=== PATIENT | female | born 1990 | race Hispanic/Latino ===

== ENCOUNTER 2020-07-05 09:18 | Inpatient (IN) | payer OTHER ==
[2020-07-06] MEDS ORDERED: OXYTOCIN/LR 20 UNIT/1,000 ML BAG IV SCH ×2 (04:15→10:00)
[2020-07-06] MEDS ORDERED: METHYLERGONOVINE 0.2MG/ML AMP IM PRN (04:15)
[2020-07-06] MEDS ORDERED: PROMETHAZINE INJ 25 MG/ML AMP IM PRN (04:15)
[2020-07-06] MEDS ORDERED: BUTORPHANOL 1 MG/ML INJ IV PRN (04:15)
[2020-07-06] MEDS ORDERED: Ringers Lactate 1,000 ML IV SCH (04:15)
[2020-07-06] MEDS ORDERED: CARBOPROST TROME 250 MCG/ML IM PRN (04:15)
[2020-07-06] MEDS ORDERED: Ringers Lactate 1,000 ML IV PRN (04:15)
[2020-07-06] MEDS ORDERED: OXYTOCIN/LR 20 UNIT/1,000 ML BAG IV ONE (04:57)
[2020-07-06] MEDS ORDERED: Ringers Lactate 1,000 ML IV ONE (05:32)
[2020-07-06 06:12] VITALS: BMI 24.1
[2020-07-06 06:13] LABS: Urine Appearance CLOUDY; Urine Bilirubin NEGATIVE (NEG); Urine Blood NEGATIVE (NEG); Urine Color YELLOW; Urine Culture Reflex Order REFLEXED; Urine Glucose NEGATIVE (NEG); Urine Microscopic Reflex ORDER UMIC; Urine Protein NEGATIVE (NEG); Urine Specific Gravity 1.015 (1.005-1.030)
[2020-07-06 06:14] LABS: Calcium Oxalate Crystals- Ur FEW (NONE SEEN); Urine Amorphous Sediment 3+ /HPF (NONE SEEN); Urine Bacteria <20 /HPF (<20); Urine RBC NONE SEEN /HPF (NONE SEEN)
[2020-07-06 06:33] LABS: Absolute Lymphocytes (CBC) 1.6 K/uL (0.7-4.9); Basophils % 0.4 % (0-1.3); Hematocrit 31.1 % (36.0-45.0); Lymphocytes % 20.4 % (15.3-44.8); MPV 8.8 fL (7.6-11.3); RBC Red Blood Cell Count 3.57 M/uL (3.86-4.86)
--- NOTE | 2020-07-06 08:21 | PREOPHP ---
Date of Admission: 07/06/2020 History Of Present Illness: A 30-year-old 2, para 1, 39 weeks and 2-3 days, followed antepar brea without complications, other than noted to be positive for COVID, actually no symptoms. has never been tested, neither one of them have symptoms. The patient is 3 cm to 3.5 cm, still very posterior, baby well applied, rupture of membranes, clear fluid. FHTs normal and reactive. Full lab or talk given. Anticipate delivery sometime later today. Family History: Father with hypertension. Allergies: THE PATIENT HAS HAD NO ALLERGIES. Medications: No medicines prior to admission other than vitamins and iron. Social History: Does not smoke. Physical Examination: HEENT: Clear. Pupils equal, round, and reactive to light and accommodation. Conjunctivae well perf used. No oral, lingual, or buccal lesions. Chest and Lungs: Clear. Heart: Without murmurs, thrills, heaves, or rubs. Breasts: Without masses on previous visits. Abdomen: Term size. Pelvic: As stated. Extremities: Clear without edema, cyanosis, or clubbing. Plan: Admit for delivery at 39 weeks and approximately 3 days. COVID positive, asymptomatic. LOLIS/CLIFFORD Voice ID: [id number]
[2020-07-06] MEDS ORDERED: LIDOCAINE 1% 20 ML MDV ONE (09:07)
[2020-07-06] MEDS ORDERED: DIPHENHYDRAMINE 25 MG TAB/CAP PO PRN (09:22)
[2020-07-06] MEDS ORDERED: BISACODYL 10 MG RECTAL SUPP RC PRN (09:22)
[2020-07-06] MEDS ORDERED: Oxycodone HCl/Acetaminophen 1 TAB TAB PO PRN ×2 (09:22)
[2020-07-06] MEDS ORDERED: DOCUSATE NA/SENNA CONC 1 TAB PO PRN (09:22)
[2020-07-06] MEDS ORDERED: ACETAMINOPHEN 500 MG TAB PO PRN (09:22)
[2020-07-06] MEDS: IBUPROFEN 600 MG TAB PO PRN ×2 (09:50→19:40)
[2020-07-06] MEDS ORDERED: IBUPROFEN 600 MG TAB ONE (10:00)
--- NOTE | 2020-07-06 10:02 | OP ---
Surgeon: Iron Winn MD is a 30-year-old 2, para 1, 39 weeks 3 days, came in for induction. Rh positive, immune to rubella, negative strep screen, positive COVID status, 0 symptoms. 3 cm to 3.[address] examined. Rupture of membranes, clear fluid. Received Stadol 1 mg IV, Phenergan 25 mg IM once, w ent rapidly to complete second stage of 15 to 20 minutes. Spontaneous vaginal delivery of an estimat ed 6 pounds plus female, Apgars 9 and 9. Very small first-degree laceration involving the left labia minora, 4 stitches of 2-0 chromic, local infiltration. Tolerated all procedures well. Final Diagnoses: Term intrauterine 39 weeks 3 days, vaginal delivery, positive COVID statu s, asymptomatic. LOLIS/CLIFFORD Voice ID: [id number] Report ID: [id number]
[2020-07-06 23:28] LABS: RPR (Rapid Plasma Reagin) NON-REACT (NON-REACT)
[2020-07-07 11:45] VITALS: BP 111/55; TEMP 97.6
[2020-07-08 22:17] LABS: HBsAG Nonreactive (Nonreactive)
== END 2020-07-07 15:35 | disposition home or self-care (01) | DRG 805 ==
LOC: 2ND-WC 07-06 03:30
PROVIDERS: ADMIT Specialist; ATTEND Specialist
PROC: 10E0XZZ Delivery of Products of Conception, External Approach (ICD-10-PCS; principal; 2020-07-06)
PROC: 0HQ9XZZ Repair Perineum Skin, External Approach (ICD-10-PCS; 2020-07-06)
DX: O98.52 Other viral diseases complicating childbirth (principal); U07.1 COVID-19; Z37.0 Single live birth; Z3A.39 39 weeks gestation of pregnancy; O75.5 Delayed delivery after artificial rupture of membranes; O70.0 First degree perineal laceration during delivery
CPT/HCPCS: 36415; 81003; 81015; 85025; 86592; 86901; 87086; 87088; 87340; J0595; J2210; J2550; J2590; J7120; U0003

== ENCOUNTER 2022-07-06 13:40 | Emergency (ER) | payer OTHER ==
--- OUTSIDE RECORDS SUMMARY | 2022-07-06 13:45 | XMS REPORT | Continuity of Care Document ---
:1990 Author Organization [facility] t Address [address] [place] [address] Care Team Providers Name Role Phone PCP, PATIENT DOES NOT HAVE A Primary Care Physician Unavaila SAIRA Torres Attending Clinician Unavailable Saira Olivarez Attending Clinician Payers Payer Name Policy Type Policy Number Effective Date Expiration Date Madeleine MALHOTRA II [id number] 2021 00:00:00 Problems Condition Condition Condition Status Onset Resolution Last Treating Co mments Source Name Details Category Date Date Treatment Clinician Date No known No known Disease Unive rs active active ity of problems problems [facility] Allergies, Adverse Reactions, Alerts Allergy Allergy Status Severity Reaction(s) Onset Inactive Treating Comm ents Source Name Type Date Date Clinician NO KNOWN Drug Active Univers ALLERGIE Class ity of S [facility] Social History Social Habit Start Date Stop Date Quantity Comments Source Exposure to Not sure [facility] SARS-CoV-2 (event) Medica l Branch Sex Assigned At [birth year] [facility] 00:00:00 00:00:00 [facility] Smoking Status Start Date Stop Date Source Unknown if ever smoked [facility] Medications Ordered Filled Start Stop Current Ordering Indication Dosage Frequency Signature Comments Components Source Medication Medication Date Date Medication? Clinician (SIG) Name Name No known No Univers medications 4-19 ity of 10:26: [address] Vital Signs Vital Name Observation Time Observation Value Comments Source Systolic blood 2022-01-24 15:26:00 114 mm[Hg] Univer sity of pressure [facility] Diastolic blood 2022-01-24 15:26:00 78 mm[Hg] Unive rsity [facility] Heart rate 2022-01-24 15:26:00 100 /min [facility] Body temperature 2022-01-24 15:26:00 37.61 Odalis [facility] Respiratory rate 2022-01-24 15:26:00 17 /min [facility] Body height 2022-01-24 15:26:00 157.5 cm [facility] Body weight 2022-01-24 15:26:00 59.421 kg [facility] BMI 2022-01-24 15:26:00 23.96 kg/m2 [facility] Oxygen saturation in 2022-01-24 15:26:00 98 /min [facility] Arterial blood by [facility] Pulse oximetry [place] Procedures Procedure Date / Time Performed Performing Clinician Carlos e POCT MOLECULAR FLU 2022-01-24 15:41:00 Saira Sandhu [facility] POCT MOLECULAR STREP 2022-01-24 15:39:00 [facility] Encounters Start End Encounter Admission Attending Care Care Encounter Source Date/Time Date/Time Type Type Clinicians Facility Department ID 2022-01-24 2022-01-24 Outpatient R [facility] [id number] Univers 10:20:00 11:00:39 SAIRA helena o f [facility] 2022-01-24 2022-01-24 Urgent [facility] [id number] Univers 10:20:00 11:00:39 Care [facility] [id number] i ty of ODALYS [id number] Adam as TERESA?BLEA [id number] [address] MEDICAL OFFICE BUILDING Results Test Description Test Time Test Comments Results Result Comments Source POCT MOLECULAR FLU 2022-01-24 15:52:45 Test Item Value Reference Range Interpretation Comme nts POCT Molecular FluA (test code = 59158-8) Negative Negative POCT Molecular FluB (test code = 27090-9) Negative Negative Lab Interpretation (test code = 13628-8) [facility] [id number] 15:45:59 Test Item Value Reference Range Interpretation Comments POCT Molecular Strep (test code = Negative Negative 96575-2) Lab Interpretation (test code = Normal 52922-4) [facility]
[2022-07-06] MEDS ORDERED: ASPIRIN 81 MG CHEWABLE TABLET ONE (14:01)
[2022-07-06 14:23] LABS: Absolute Lymphocytes (CBC) 1.7 K/uL (0.7-4.9); Hematocrit 39.8 % (36.0-45.0); MCV 88.6 fL (80-100); RBC Red Blood Cell Count 4.49 M/uL (3.86-4.86)
[2022-07-06 14:39] LABS: ALT/SGPT 23 U/L (12-78); AST/SGOT 13 U/L (15-37); Albumin 4.1 g/dL (3.4-5.0); Alkaline Phosphatase 108 U/L (45-117); BUN Blood Urea Nitrogen 11 mg/dL (7-18); Bicarbonate 24 mmol/L (21-32); Bilirubin Direct 0.1 mg/dL (0-0.2); Bilirubin Total 0.6 mg/dL (0.2-1.0); Glomerular Filtration Rate 89 ml/min (=/>90); Glucose Level 92 mg/dL (74-106); Potassium 3.5 mmol/L (3.5-5.1); Protein, Total 8.3 g/dL (6.4-8.2); Sodium Level 139 mmol/L (136-145)
[2022-07-06 14:53] LABS: Troponin High Sensitivity < 3.0 pg/mL (<58.9)
--- NOTE | 2022-07-06 15:16 | RAD REPORT ---
EXAM DESCRIPTION: RAD - Chest Single View - 07/06/2022 2:35 pm CLINICAL HISTORY: CHEST PAIN COMPARISON: None TECHNIQUE: AP portable chest image was obtained 07/06/2022 2:35 pm . FINDINGS: Lungs are clear. Heart and vasculature are normal. No measurable pleural effusion and no p neumothorax. No acute bony abnormality seen. No acute aortic findings suspected. IMPRESSION: No acute cardiopulmonary process.
--- NOTE | 2022-07-06 15:37 | EDPHYS ---
Physician Documentation [facility] Name: Aimee Brewer Age: 32 yrs Sex: Female : 1990 Arrival Date: 07/06/2022 Time: 13:42 Bed 9 Private MD: ED Physician Nikhil Marcos HPI: 07/06 14:14 This 32 yrs old Female presents to ER via Ambulatory with complaints of Chest jr11 Pain, Back Pain, Jaw Pain. 14:14 The patient or guardian reports chest pain that is located primarily in the substernal jr11 area. The pain does not radiate. Associated signs and symptoms: Pertinent negatives: abdominal pain, diaphoresis, lower extremity pain, lower extremity swelling, no h/o clots, no OCPs. The chest pain is described as aching, sharp. Duration: The patient or guardian reports multiple episodes, x 2 last 2 nights. Modifying factors: The symptoms are alleviated by nothing. the symptoms are aggravated by nothing. Severity of pain: At its worst the pain was moderate in the emergency department the pain. HOURLY SHIFT: 13:50 LMP N/A - Depo-provera kl Historical: - Allergies: 13:50 No Known Allergies; kl - Home Meds: 13:50 None [Active]; kl - PMHx: 13:50 None; kl - Immunization history:: Adult Immunizations up to date. - Social history:: Smoking status: Patient denies any tobacco usage or history of. ROS: 14:14 All other systems are negative. jr11 Exam: 14:14 Constitutional: This is a well developed, well nourished patient who is awake, alert, jr11 and in no acute distress. Head/Face: Normocephalic, atraumatic. Eyes: Extra-ocular motions intact. Lids and lashes normal. Conjunctiva and sclera are non-icteric and not injected. Cornea within normal limits. Periorbital areas with no swelling, redness, or edema. ENT: Nares patent. No nasal discharge, no septal abnormalities noted. Oropharynx with no redness, swelling, or masses, exudates, or evidence of obstruction, uvula midline. Mucous membranes moist. Neck: Trachea midline, no thyromegaly or masses palpated, and no cervical lymphadenopathy. Supple, full range of motion without nuchal rigidity, or vertebral point tenderness. No Meningismus. Chest/axilla: Normal chest wall appearance and motion. Nontender with no deformity. No lesions are appreciated. Cardiovascular: Regular rate and rhythm with a normal S1 and S2. No gallops, murmurs, or rubs. Normal PMI, no JVD. No pulse deficits. Respiratory: Lungs have equal breath sounds bilaterally, clear to auscultation and percussion. No rales, rhonchi or wheezes noted. No increased work of breathing, no retractions or nasal flaring. Abdomen/GI: Soft, non-tender, with normal bowel sounds. No distension or tympany. No guarding or rebound. No evidence of tenderness throughout. Back: No spinal tenderness. No costovertebral tenderness. Full range of motion. Skin: Warm, dry with normal turgor. Normal color with no rashes, no lesions, and no evidence of cellulitis. MS/ Extremity: Pulses equal, no cyanosis. Neurovascular intact. Full, normal range of motion. Neuro: Awake and alert, GCS 15, oriented to person, place, time, and situation. No gross motor or sensory deficits. Vital Signs: 13:49 BP 133 / 96; Pulse 80; Resp 18; Temp 98.4; Pulse Ox 100% ; Weight 56.7 kg; Height 5 ft. kl 2 in. (157.48 cm); Pain 8/10; 14:15 BP 128 / 94; Pulse 72; Resp 16; Pulse Ox 98% ; kb3 13:49 Body Mass Index 22.86 (56.70 kg, 157.48 cm) kl MDM: 13:59 Patient medically screened. [facility] 14:02 Differential diagnosis: anxiety, gastritis. Data reviewed: vital signs, nurses notes. [facility] ED course: EKG interpreted by me shows normal sinus rhythm, normal axis, normal intervals, no acute ST changes, EKG normal otherwise.. 14:14 ED course: Patient is a 35-year-old with episodes of chest pain that happen at [facility] nighttime, worse laying flat, at times described as a burning sharp sensation, better with standing up or sitting up. Extremely low risk for ACS, no high risk factors. Patient is also PERC negative, not on OCPs, no history of blood clots. Patient likely with gastritis versus GERD, will send 1 set of troponin rule out ACS. If negative, will refer back to primary care doctor.. 15:35 HEART Score: History: Slightly Suspicious (0), ECG: Normal (0), Age: < or = 45 years jr11 (0), Risk Factors: 1 or 2 risk factors (1), Troponin: < or = 1 x Normal Limit (0), Total Score = 1. 07/06 13:59 Order name: Basic Metabolic Panel; Complete Time: 15:32 07/06 13:59 Order name: CBC with Diff; Complete Time: 15:07/06 13:59 Order name: LFT's; Complete Time: 15:07/06 13:59 Order name: Troponin HS; Complete Time: 15:07/06 13:59 Order name: XRAY Chest (1 view); Complete Time: 15:07/06 13:59 Order name: EKG; Complete Time: 14:00 07/06 13:59 Order name: Cardiac monitoring; Complete Time: 14:00 07/06 13:59 Order name: EKG - Nurse/Tech; Complete Time: 14:00 07/06 13:59 Order name: IV Saline Lock; Complete Time: 14:29 07/06 13:59 Order name: Labs collected and sent; Complete Time: 14:29 07/06 13:59 Order name: O2 Per Protocol; Complete Time: 14:00 07/06 13:59 Order name: O2 Sat Monitoring; Complete Time: 14:00 Administered Medications: 14:04 Drug: Aspirin Chewable Tablet 324 mg Route: PO; [facility] 14:29 Follow up: Response: No adverse reaction kb3 Disposition Summary: 07/06/22 15:36 Discharge Ordered Location: Home jr11 Condition: Stable jr11 Diagnosis - Chest pain, unspecified jr11 Discharge Instructions: - Discharge Summary Sheet jr11 - Nonspecific Chest Pain, Adult jr11 Forms: - Medication Reconciliation Form jr11 - Thank You Letter jr11 - Antibiotic Education jr11 - Prescription Opioid Use jr11 Prescriptions: - Pepcid 20 mg Oral Tablet - take 1 tablet by ORAL route once daily; 20 tablet; Refills: 0, Product jr11 Selection Permitted Signatures: Dispatcher [employer] Morenita Cardona RN RN Jessy Ricks RN RN 5 Nikhil Marcos MD MD jr11 Katarina Patton RN kb3
--- NOTE | 2022-07-06 15:37 | ER ---
Nurse's Notes [facility] Name: Aimee Brewer Age: 32 yrs Sex: Female : 1990 Arrival Date: 07/06/2022 Time: 13:42 Bed 9 Private MD: Diagnosis: Chest pain, unspecified Presentation: 07/06 13:49 Chief complaint: Patient states: chest pain that radiates to her back and into jaw x2 kl nights, wakes up out of sleep. Coronavirus screen: Vaccine status: Patient reports receiving the 2nd dose of the covid vaccine. Client denies travel out of the [place] in the last 14 days. Ebola Screen: Patient negative for fever greater than or equal to 101.5 degrees Fahrenheit, and additional compatible Ebola Virus Disease symptoms Patient denies exposure to infectious person. Patient denies travel to an Ebola-affected area in the 21 days before illness onset. Initial Sepsis Screen: Does the patient meet any 2 criteria? No. Patient's initial sepsis screen is negative. Does the patient have a suspected source of infection? No. Patient's initial sepsis screen is negative. Risk Assessment: Do you want to hurt yourself or someone else? Patient reports no desire to harm self or others. Onset of symptoms was July 04, 2022. 13:49 Method Of Arrival: Ambulatory 13:49 Acuity: SARAH 3 kl Triage Assessment: 13:50 General: Appears in no apparent distress. uncomfortable, slender, well groomed, well kl developed, Behavior is calm, cooperative, appropriate for age. Pain: Complains of pain in chest. Cardiovascular: No deficits noted. DRESS FINISHER: 13:50 LMP N/A - Depo-provera Historical: - Allergies: 13:50 No Known Allergies; kl - Home Meds: 13:50 None [Active]; kl - PMHx: 13:50 None; kl - Immunization history:: Adult Immunizations up to date. - Social history:: Smoking status: Patient denies any tobacco usage or history of. Screenin:15 Abuse screen: Denies threats or abuse. Denies injuries from another. Nutritional kb3 screening: No deficits noted. Tuberculosis screening: No symptoms or risk factors identified. Fall Risk None identified. Assessment: 14:15 Reassessment: Patient appears in no apparent distress at this time. General: Appears in kb3 no apparent distress. comfortable, Behavior is calm, cooperative, Pt reports epigastric burning that radiates into middle chest and jaw x 3 episodes over the last 2 days. Pt denies N/V/sweating associated with pain episodes. States each episode last approximately 1 hr and waxes/wanes in nature. . 14:15 Pain: Complains of pain in epigastric area Pain radiates to mid-sternal area and kb3 bilateral lower jaw Pain currently is 0 out of 10 on a pain scale. Quality of pain is described as burning, sharp, Pain began 2-3 days ago. Cardiovascular: Heart tones present Capillary refill < 3 seconds Patient's skin is warm and dry. Rhythm is sinus rhythm. Respiratory: No deficits noted. GI: Abdomen is flat, Bowel sounds present X 4 quads. Abd is soft and non tender. Vital Signs: 13:49 BP 133 / 96; Pulse 80; Resp 18; Temp 98.4; Pulse Ox 100% ; Weight 56.7 kg; Height 5 ft. kl 2 in. (157.48 cm); Pain 8/10; 14:15 BP 128 / 94; Pulse 72; Resp 16; Pulse Ox 98% ; kb3 13:49 Body Mass Index 22.86 (56.70 kg, 157.48 cm) ED Course: 13:42 Patient arrived in ED. rg4 13:50 Triage completed. kl 13:50 Arm band placed on right wrist. kl 13:56 Nikhil Marcos MD is Attending Physician. jr11 14:04 Katarina Patton, DINORA is Primary Nurse. kb3 14:15 Patient has correct armband on for positive identification. Placed in gown. Bed in low kb3 position. Call light in reach. Side rails up X 1. Client placed on continuous cardiac and pulse oximetry monitoring. NIBP monitoring applied. verse writer on. 14:15 No provider procedures requiring assistance completed. Patient maintains SpO2 kb3 saturation greater than 95% on room air. 14:18 Inserted saline lock: 20 gauge in right antecubital area, using aseptic technique. jd3 Blood collected. placed by Domonique HEWITT observed by Beka FARIAS. 14:37 XRAY Chest (1 view) In Process Unspecified. EDMS 15:43 IV discontinued, intact, bleeding controlled, No redness/swelling at site. Pressure jh5 dressing applied. Administered Medications: 14:04 Drug: Aspirin Chewable Tablet 324 mg Route: PO; 5 14:29 Follow up: Response: No adverse reaction kb3 Medication: 14:15 VIS not applicable for this client. kb3 Outcome: 15:36 Discharge ordered by . jr11 15:43 Discharged to home ambulatory. 5 15:43 Condition: good 15:43 Discharge instructions given to patient, Instructed on discharge instructions, follow up and referral plans. medication usage, safety practices, Demonstrated understanding of instructions, follow-up care, medications, Prescriptions given X 1. 15:44 Patient left the ED. 5 Signatures: Dispatcher [employer] EDMS Morenita Bush RN RN Denise Blake rg4 Beka Salcido RN RN marcod3 Jessy Ricks RN RN jh5 Nikhil Marcos MD MD jr11 Katarina Patton RN RN kb3
--- NOTE | 2022-07-07 06:25 | EKG ---
Test Date: 2022-07-06 Test Time: 13:57:54 Spanish Interpreter: MEASUREMENT RESULTS: Intervals: Rate: 78 SD: 118 QRSD: 74 QT: 368 QTc: 419 Pollock: P: 32 SD: 118 QRS: 65 T: 40 INTERPRETIVE STATEMENTS: Normal sinus rhythm with sinus arrhythmia Normal ECG No previous ECG available for comparison Electronically Signed On 07-07-22 06:24:07 CDT by Javier Weaver
[2022-07-07 19:03] VITALS: TEMP 98.4
[2022-07-07 19:04] VITALS: BP 128/94; O2SAT 98
== END 2022-07-06 15:44 | disposition home or self-care (01) ==
LOC: ER 13:40
DX: R07.9 Chest pain, unspecified (principal)
CPT/HCPCS: 36415; 71045; 80048; 80076; 84484; 85025; 93005; 99285

== ENCOUNTER 2022-09-12 17:00 | Emergency (ER) | payer OTHER ==
--- OUTSIDE RECORDS SUMMARY | 2022-09-12 17:04 | XMS REPORT | Continuity of Care Document ---
:1990 Author Organization [facility] t Address [address] [place] [address] Care Team Providers Name Role Phone PCP, PATIENT DOES NOT HAVE A Primary Care Physician Unavaila SAIRA Torres Attending Clinician Unavailable Saira Olivarez Attending Clinician Payers Payer Name Policy Type Policy Number Effective Date Expiration Date Madeleine MALHOTRA II [id number] 2021 00:00:00 Problems Condition Condition Condition Status Onset Resolution Last Treating Co mments Source Name Details Category Date Date Treatment Clinician Date No known No known Disease Unive rs active active ity of problems problems [facility] Allergies, Adverse Reactions, Alerts Allergy Allergy Status Severity Reaction(s) Onset Inactive Treating Comm ents Source Name Type Date Date Clinician NO KNOWN Drug Active Univers ALLERGIE Class ity of S [facility] Social History Social Habit Start Date Stop Date Quantity Comments Source Exposure to Not sure [facility] SARS-CoV-2 (event) Medica l Branch Sex Assigned At [birth year] [facility] 00:00:00 00:00:00 [facility] Smoking Status Start Date Stop Date Source Unknown if ever smoked [facility] Medications Ordered Filled Start Stop Current Ordering Indication Dosage Frequency Signature Comments Components Source Medication Medication Date Date Medication? Clinician (SIG) Name Name No known No Univers medications 4-19 ity of 10:26: [address] Vital Signs Vital Name Observation Time Observation Value Comments Source Systolic blood 2022-01-24 15:26:00 114 mm[Hg] Univer sity of pressure [facility] Diastolic blood 2022-01-24 15:26:00 78 mm[Hg] Unive rsity [facility] Heart rate 2022-01-24 15:26:00 100 /min [facility] Body temperature 2022-01-24 15:26:00 37.61 Odalis [facility] Respiratory rate 2022-01-24 15:26:00 17 /min [facility] Body height 2022-01-24 15:26:00 157.5 cm [facility] Body weight 2022-01-24 15:26:00 59.421 kg [facility] BMI 2022-01-24 15:26:00 23.96 kg/m2 [facility] Oxygen saturation in 2022-01-24 15:26:00 98 /min [facility] Arterial blood by [facility] Pulse oximetry [place] Procedures Procedure Date / Time Performed Performing Clinician Carlos e POCT MOLECULAR FLU 2022-01-24 15:41:00 Saira Sandhu [facility] POCT MOLECULAR STREP 2022-01-24 15:39:00 [facility] Encounters Start End Encounter Admission Attending Care Care Encounter Source Date/Time Date/Time Type Type Clinicians Facility Department ID 2022-01-24 2022-01-24 Outpatient R [facility] [id number] Univers 10:20:00 11:00:39 SAIRA helena o f [facility] 2022-01-24 2022-01-24 Urgent [facility] [id number] Univers 10:20:00 11:00:39 Care [facility] [id number] i ty of ODALYS [id number] Adam as TERESA?BLEA [id number] [address] MEDICAL OFFICE BUILDING Results Test Description Test Time Test Comments Results Result Comments Source POCT MOLECULAR FLU 2022-01-24 15:52:45 Test Item Value Reference Range Interpretation Comme nts POCT Molecular FluA (test code = 09193-1) Negative Negative POCT Molecular FluB (test code = 14519-7) Negative Negative Lab Interpretation (test code = 02050-4) [id number] 15:45:59 Test Item Value Reference Range Interpretation Comments POCT Molecular Strep (test code = Negative Negative 05370-9) Lab Interpretation (test code = Normal 79048-0) [facility]
[2022-09-12 17:48] LABS: Urine Blood 2+ (Negative); Urine Glucose Negative (Negative); Urine Protein 1+ (Negative); Urine Specific Gravity >=1.030 (1.005-1.030); Urine pH 6.5 (5.0-7.0)
[2022-09-12] MEDS ORDERED: NA CHLORIDE 0.9% 1,000 ML ONE (17:56)
[2022-09-12] MEDS ORDERED: MORPHINE 4 MG/ML SYR ONE ×2 (17:56→20:24)
[2022-09-12] MEDS ORDERED: ONDANSETRON 4 MG/2 ML VIAL ONE (17:56)
[2022-09-12 17:57] LABS: Absolute Lymphocytes (CBC) 0.5 K/uL (0.7-4.9); Lymphocytes % 3.5 % (15.3-44.8); MCV 89.7 fL (80-100); MPV 7.3 fL (7.6-11.3); RBC Red Blood Cell Count 4.35 M/uL (3.86-4.86)
[2022-09-12 18:07] LABS: Urine Specific Gravity/Preg >1.030 (1.005-1.030)
[2022-09-12 18:08] LABS: Urine Mucus 1+ /HPF (None Seen); Urine RBC 21-50 /HPF (None Seen)
[2022-09-12 18:15] LABS: Albumin 4.1 g/dL (3.4-5.0); Bilirubin Total 0.6 mg/dL (0.2-1.0); Protein, Total 7.9 g/dL (6.4-8.2)
--- NOTE | 2022-09-12 19:46 | RAD REPORT ---
EXAM DESCRIPTION: CT - Abdomen Pelvis W Contrast - 09/12/2022 7:34 pm CLINICAL HISTORY: Abdominal pain right lower quadrant pain COMPARISON: none. TECHNIQUE: Computed axial tomography of the abdomen pelvis was obtained. 100 cc Isovue-300 was admin istered intravenously. Oral contrast was not requested which limits evaluation of bowel and appendix All CT scans are performed using dose optimization technique as appropriate and may include automated exposure control or mA/KV adjustment according to patient size. FINDINGS: Multiple small right renal calculi. Mild right hydronephrosis. A 5 millimeter calculus in the mid right ureter. Delay in concentration of contrast right kidney. Left kidney unremarkable. The liver, spleen, pancreas and adrenals appear normal. Normal appendix. No evidence of diverticulitis. No adnexal mass IMPRESSION: 5 millimeter calculus mid right ureter resulting in mild right hydronephrosis
--- NOTE | 2022-09-12 20:15 | EDPHYS ---
Physician Documentation [facility] Name: Aimee Brewer Age: 32 yrs Sex: Female : 1990 Arrival Date: 09/12/2022 Time: 17:02 Bed 19 Private MD: ED Physician Steven Chawla HPI: 09/12 17:45 This 32 yrs old Female presents to ER via Ambulatory with complaints of Pelvic cp Pain, Back Pain. 17:45 The patient presents with abdominal pain right lower quadrant. cp 17:45 Onset: The symptoms/episode began/occurred today. Associated signs and symptoms: cp Pertinent positives: nausea and vomiting, Pertinent negatives: blood in stools, constipation, diarrhea, fever, vaginal discharge, vomiting blood. The symptoms are described as constant. Severity of pain: in the emergency department the pain is unchanged despite home interventions. 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 - Social history:: Smoking status: Patient denies any tobacco usage or history of. ROS: 17:50 Constitutional: Negative for body aches, chills, fever, poor PO intake. cp 17:50 Eyes: Negative for injury, pain, redness, and discharge. cp 17:50 ENT: Negative for drainage from ear(s), ear pain, sore throat, difficulty swallowing, difficulty handling secretions. 17:50 Respiratory: Negative for cough, shortness of breath, wheezing. 17:50 Abdomen/GI: Positive for abdominal pain, nausea, vomiting, of the right lower quadrant, Negative for diarrhea, constipation. 17:50 Back: Negative for injury or acute deformity, decreased range of motion. 17:50 : Negative for burning with urination, vaginal bleeding, vaginal discharge. 17:50 Neuro: Negative for altered mental status, dizziness, headache, weakness. 17:50 All other systems are negative. Exam: 17:55 Constitutional: The patient appears in no acute distress, alert, awake, non-toxic, well cp developed, well nourished. 17:55 Head/Face: Normocephalic, atraumatic. cp 17:55 Eyes: Periorbital structures: appear normal, Conjunctiva: normal, no exudate, no injection, Sclera: no appreciated abnormality, Lids and lashes: appear normal, bilaterally. 17:55 ENT: External ear(s): are unremarkable, Nose: is normal, Mouth: Lips: moist, Oral mucosa: moist, Posterior pharynx: Airway: no evidence of obstruction, patent. 17:55 Chest/axilla: Inspection: normal. 17:55 Cardiovascular: Rate: tachycardic, Rhythm: regular. 17:55 Respiratory: the patient does not display signs of respiratory distress, Respirations: normal, no use of accessory muscles, no retractions, labored breathing, is not present, Breath sounds: are clear throughout, no decreased breath sounds, no stridor, no wheezing. 17:55 Abdomen/GI: Inspection: abdomen appears normal, Bowel sounds: active, all quadrants, Palpation: soft, in all quadrants, moderate abdominal tenderness, in the right lower quadrant, rebound tenderness, is not appreciated, involuntary guarding, is not appreciated. 17:55 Back: CVA tenderness, is absent. 17:55 Neuro: Orientation: to person, place \T\ time. Mentation: is normal, Motor: moves all fours, strength is normal, Gait: is steady, at a normal pace, without difficulty. Vital Signs: 17:18 BP 140 / 83; Pulse 104; Resp 18; Temp 98.6; Pulse Ox 99% ; Weight 61.23 kg; Height 5 jh5 ft. 5 in. (165.10 cm); Pain 8/10; 17:30 BP 135 / 91; Pulse 79; Resp 14; Pulse Ox 99% ; vg1 21:15 BP 128 / 72; Pulse 68; Resp 17; Pulse Ox 100% on R/A; kd3 17:18 Body Mass Index 22.46 (61.23 kg, 165.10 cm) jh5 MDM: 17:32 Patient medically screened. cp 18:00 Differential diagnosis: appendicitis, Ectopic , Ovarian Torsion, Pelvic cp Inflammatory Disease, Pyelonephritis, Tubal Ovarian Abcess, Ureterolithiasis, urinary tract infection. 20:10 Data reviewed: vital signs, nurses notes, lab test result(s), radiologic studies, CT cp scan. Counseling: I had a detailed discussion with the patient and/or guardian regarding: the historical points, exam findings, and any diagnostic results supporting the discharge/admit diagnosis, lab results, radiology results, to return to the emergency department if symptoms worsen or persist or if there are any questions or concerns that arise at home. Response to treatment: the patient's symptoms have markedly improved after treatment. ED course: VSS. Pain markedly improved, patient sitting in exam room comfortably. Will discharge to home for continued monitoring. 09/12 17:37 Order name: CBC with Diff; Complete Time: 18:16 cp 09/12 18:16 Interpretation: Normal except: WBC 12.90; MPV 7.3; GAB% 95.0; LYM% 3.5; MN% 1.2; NEUT A cp 12.3; LYMA 0.5. 09/12 17:37 Order name: CMP; Complete Time: 18:16 cp 09/12 18:17 Interpretation: Normal except: NA 134; GLUC 108; GFR 80; AST 14; GLOB 3.8. cp 09/12 17:37 Order name: Lipase; Complete Time: 18:16 cp 09/12 17:37 Order name: Urine Microscopic Only; Complete Time: 18:16 cp 09/12 17:48 Order name: Urine Dipstick-Ancillary; Complete Time: 18:16 EDMS 09/12 17:49 Order name: Urine --Ancillary (enter results); Complete Time: 18:16 bd 09/12 17:37 Order name: CT Abd/Pelvis - IV Contrast Only; Complete Time: 19:47 cp 09/12 17:37 Order name: IV Saline Lock; Complete Time: 17:51 cp 09/12 17:37 Order name: Labs collected and sent; Complete Time: 17:51 cp 09/12 17:37 Order name: Urine Dipstick-Ancillary (obtain specimen); Complete Time: 17:51 cp 09/12 17:37 Order name: Urine Test (obtain specimen); Complete Time: 17:51 cp Administered Medications: 17:56 Drug: NS 0.9% 1000 ml Route: IV; Rate: 1 bolus; Site: right antecubital; vg1 21:14 Follow up: IV Status: Completed infusion kd3 17:56 Drug: Zofran (Ondansetron) 4 mg Route: IVP; Site: right antecubital; vg1 18:30 Follow up: Response: No adverse reaction; Marked relief of symptoms vg1 17:58 Drug: morphine 4 mg Route: IVP; Infused Over: 4 mins; Site: right antecubital; vg1 18:30 Follow up: Response: No adverse reaction; Marked relief of symptoms vg1 20:29 Drug: Magnesium Sulfate 1 grams Route: IVPB; Infused Over: 1 hrs; Site: right kd3 antecubital; 21:14 Follow up: IV Status: Completed infusion kd3 20:30 Drug: morphine 4 mg Route: IVP; Infused Over: 4 mins; Site: right antecubital; kd3 20:31 Follow up: Response: No adverse reaction; Pain is decreased kd3 20:30 Drug: Ketorolac 15 mg Route: IVP; Site: right antecubital; kd3 20:31 Follow up: Response: Pain is decreased kd3 20:30 Drug: Flomax (tamsulosin) 0.4 mg Route: PO; kd3 20:31 Follow up: Response: No adverse reaction kd3 Disposition Summary: 09/12/22 20:15 Discharge Ordered Location: Home cp Problem: new cp Symptoms: have improved cp Condition: Stable cp Diagnosis - Calculus of kidney with calculus of ureter - right cp Followup: cp - With: Mo Duran MD - When: 2 - 3 days - Reason: pain continues Discharge Instructions: - Discharge Summary Sheet cp - Kidney Stones cp - Renal Colic cp Forms: - Medication Reconciliation Form cp - Thank You Letter cp - Antibiotic Education cp - Prescription Opioid Use cp Prescriptions: - Flomax 0.4 mg Oral capsule - take 1 capsule by ORAL route once daily As needed 1/2 hour following the same cp meal each day; 5 capsule; Refills: 0, Product Selection Permitted - Zofran 4 mg Oral Tablet - take 1 tablet by ORAL route every 12 hours As needed; 20 tablet; Refills: 0, cp Product Selection Permitted - Tylenol-Codeine #3 300 mg-30 mg Oral - take 2 tablet by ORAL route every 8-10 hours; 14 tablet; Refills: 0, Product cp Selection Permitted Signatures: Dispatcher [employer] EDMS Steven Ashraf PA PA cp Garcia, Victoria RN RN vg1 Jessy Ricks RN RN jh5 Marly Graham RN RN kd3 Corrections: (The following items were deleted from the chart) 18:17 18:16 Normal except: NA 134; GLUC 108; GFR 80. cp cp
--- NOTE | 2022-09-12 20:15 | ER ---
Nurse's Notes [facility] Name: Aimee Brewer Age: 32 yrs Sex: Female : 1990 Arrival Date: 09/12/2022 Time: 17:02 Bed 19 Private MD: Diagnosis: Calculus of kidney with calculus of ureter-right Presentation: 09/12 17:18 Chief complaint: Patient states: nausea, vomiting x2 today with right sided abdominal jh5 pain. Coronavirus screen: Vaccine status: Patient reports receiving the 2nd dose of the covid vaccine. Client denies travel out of the [place] in the last 14 days. Ebola Screen: Patient negative for fever greater than or equal to 101.5 degrees Fahrenheit, and additional compatible Ebola Virus Disease symptoms Patient denies exposure to infectious person. Patient denies travel to an Ebola-affected area in the 21 days before illness onset. Initial Sepsis Screen: Does the patient meet any 2 criteria? No. Patient's initial sepsis screen is negative. Does the patient have a suspected source of infection? No. Patient's initial sepsis screen is negative. Risk Assessment: Do you want to hurt yourself or someone else? Patient reports no desire to harm self or others. Onset of symptoms was September 11, 2022. 17:18 Method Of Arrival: Ambulatory [facility] 17:18 Acuity: SARAH 3 jh5 Triage Assessment: 17:22 General: Appears uncomfortable, slender, well groomed, well developed, Behavior is jh5 calm, cooperative, appropriate for age. Pain: Complains of pain in abdomen. Musculoskeletal: Circulation, motion, and sensation intact. Capillary refill < 3 seconds, Range of motion: intact in all extremities. 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 - Social history:: Smoking status: Patient denies any tobacco usage or history of. Screenin:30 Abuse screen: Denies threats or abuse. Nutritional screening: No deficits noted. vg1 Tuberculosis screening: No symptoms or risk factors identified. Fall Risk No fall in past 12 months (0 pts). No secondary diagnosis (0 pts). IV access (20 points). Ambulatory Aid- None/Bed Rest/Nurse Assist (0 pts). Gait- Normal/Bed Rest/Wheelchair (0 pts) Mental Status- Oriented to own ability (0 pts). Total Dillard Fall Scale indicates No Risk (0-24 pts). Assessment: 17:30 General: Appears in no apparent distress. uncomfortable, Behavior is calm, cooperative. vg1 Pain: Complains of pain in posterior aspect of right lateral abdomen and right lower quadrant Pain currently is 7 out of 10 on a pain scale. Pain began today around 1030. Neuro: Level of Consciousness is awake, alert, obeys commands, Oriented to person, place, time, situation. Cardiovascular: Patient's skin is warm and dry. Respiratory: Airway is patent Respiratory effort is even, unlabored. GI: Abdomen is flat, Reports nausea, vomiting. : Denies burning with urination, pain in suprapubic area. EENT: No signs and/or symptoms were reported regarding the EENT system. Derm: Skin is pink, warm \T\ dry. Musculoskeletal: Circulation, motion, and sensation intact. 18:30 Reassessment: Patient appears in no apparent distress at this time. Patient and/or vg1 family updated on plan of care and expected duration. Pain level reassessed. Patient is alert, oriented x 3, equal unlabored respirations, skin warm/dry/pink. 19:17 Reassessment: pt c/o of ABD pain; provider notified; received VO from Pascale RUBY to vg1 administer Morphine 4 mg IVP x1; notified oncoming nurse. 20:30 Reassessment: pt discharged. awaiting magnesium infusion. kd3 Vital Signs: 17:18 BP 140 / 83; Pulse 104; Resp 18; Temp 98.6; Pulse Ox 99% ; Weight 61.23 kg; Height 5 5 ft. 5 in. (165.10 cm); Pain 8/10; 17:30 BP 135 / 91; Pulse 79; Resp 14; Pulse Ox 99% ; vg1 21:15 BP 128 / 72; Pulse 68; Resp 17; Pulse Ox 100% on R/A; kd3 17:18 Body Mass Index 22.46 (61.23 kg, 165.10 cm) 5 ED Course: 17:02 Patient arrived in ED. 4 17:22 Triage completed. 5 17:22 Arm band placed on right wrist. jh5 17:25 [facility] cp 17:25 Franco Parker MD is Attending Physician. cp 17:30 Patient has correct armband on for positive identification. Bed in low position. Call vg1 light in reach. Side rails up X 1. 17:40 Initial lab(s) drawn, by me, sent to lab. Inserted saline lock: 20 gauge in right vg1 antecubital area, using aseptic technique. Blood collected. 17:49 Caroline Landers, DINORA is Primary Nurse. vg1 19:09 Steven Chawla MD is Attending Physician. cp 19:36 CT Abd/Pelvis - IV Contrast Only In Process Unspecified. EDMS 20:13 Mo Duran MD is Referral Physician. cp 21:15 No provider procedures requiring assistance completed. IV discontinued, intact, kd3 bleeding controlled, No redness/swelling at site. Pressure dressing applied. Administered Medications: 17:56 Drug: NS 0.9% 1000 ml Route: IV; Rate: 1 bolus; Site: right antecubital; vg1 21:14 Follow up: IV Status: Completed infusion kd3 17:56 Drug: Zofran (Ondansetron) 4 mg Route: IVP; Site: right antecubital; vg1 18:30 Follow up: Response: No adverse reaction; Marked relief of symptoms vg1 17:58 Drug: morphine 4 mg Route: IVP; Infused Over: 4 mins; Site: right antecubital; vg1 18:30 Follow up: Response: No adverse reaction; Marked relief of symptoms vg1 20:29 Drug: Magnesium Sulfate 1 grams Route: IVPB; Infused Over: 1 hrs; Site: right kd3 antecubital; 21:14 Follow up: IV Status: Completed infusion kd3 20:30 Drug: morphine 4 mg Route: IVP; Infused Over: 4 mins; Site: right antecubital; kd3 20:31 Follow up: Response: No adverse reaction; Pain is decreased kd3 20:30 Drug: Ketorolac 15 mg Route: IVP; Site: right antecubital; kd3 20:31 Follow up: Response: Pain is decreased kd3 20:30 Drug: Flomax (tamsulosin) 0.4 mg Route: PO; kd3 20:31 Follow up: Response: No adverse reaction kd3 Medication: 17:30 VIS not applicable for this client. vg1 Outcome: 20:15 Discharge ordered by . [place] 21:15 Discharged to home ambulatory. kd3 21:15 Condition: stable 21:15 Discharge instructions given to patient, family, Instructed on discharge instructions, follow up and referral plans. Demonstrated understanding of instructions, follow-up care, medications, Prescriptions given X 3. 21:15 Patient left the ED. kd3 Signatures: Dispatcher [employer] EDMS Steven Ashraf PA PA cp Garcia, Rubi rg4 Caroline Landers, RN RN vg1 Jessy Ricks RN RN jh5 Marly Graham, RN RN kd3
[2022-09-12] MEDS ORDERED: MAGNESIUM SULFATE 1 gm IVPB 1 GM/100 ML BAG IV ONE (20:21)
[2022-09-12] MEDS ORDERED: TAMSULOSIN 0.4 MG SR CAP ONE (20:21)
[2022-09-12] MEDS ORDERED: KETOROLAC 30 MG/ML INJ ONE (20:21)
[2022-09-13 04:18] VITALS: TEMP 98.6
[2022-09-13 04:21] VITALS: BP 128/72; O2SAT 100
== END 2022-09-12 21:15 | disposition home or self-care (01) ==
LOC: ER 17:00
DX: N20.2 Calculus of kidney with calculus of ureter (principal)
CPT/HCPCS: 85025; 36415; 81025; 83690; 80053; 74177; Q9967; J3475; J7030; J2405; 81003; 81015; 96361; 96365; 96375; 99284